=== PATIENT | male | born 1960 | race Caucasian/White ===

== ENCOUNTER 2018-10-23 10:27 | Inpatient (IN) ==
[2018-10-23] MEDS ORDERED: ASPIRIN PO ONE (10:44)
[2018-10-23] MEDS ORDERED: NS 1,000 ML IV ONE ×3 (10:53→15:00)
[2018-10-23] MEDS ORDERED: ZOFRAN IV ONE (10:53)
[2018-10-23] MEDS ORDERED: PEPCID IV ONE (10:53)
[2018-10-23] MEDS ORDERED: MORPHINE IV ONE ×3 (10:53→14:05)
[2018-10-23] MEDS ORDERED: SODIUM CHLORIDE 0.9% INJ ONE (10:54)
[2018-10-23 11:06] LABS: BASO# 0.02 X1000 (0.0-0.2); BASO% 0.2 % (0.0-0.8); EOS# 0.09 X1000 (0.0-0.7); EOS% 0.8 % (0.0-10.0); HEMATOCRIT 50.5 % (42.0-52.0); HEMOGLOBIN 16.9 g/dL (14.0-18.0); IMM GRAN# 0.01 X1000 (0.0-0.04); IMM GRAN% 0.1 % (0.0-0.5); LYMPH# 1.73 X1000 (1.2-3.4); LYMPH% 14.5 % (20.5-51.1); MCH 30.8 PG (27-31); MCHC 33.5 g/dL (33-37); MCV 92.2 FL (81-99); MONO# 0.65 X1000 (0.11-0.59); MONO% 5.4 % (1.7-9.3); NEUT# 9.47 X1000 (1.4-6.5); PLT 335 X1000 (130-400); RBC 5.48 XMIL (4.7-6.1); RDW 13.1 % (11.5-14.5); WBC 11.97 X1000 (4.8-10.8)
--- NOTE | 2018-10-23 11:10 | Diag Imaging Result Doc PS360 ---
EXAM: CHEST-PORTABLE HISTORY: epigastric pain sob TECHNIQUE: Single view of the chest was performed portably. COMPARISON: 03/28/2018 FINDINGS: The cardiomediastinal silhouette is within normal limits. The pulmonary vasculature is not congested. There are reduced lung volumes with crowding of basilar bronchovascular structures. No infiltrate, effusion, or pneumothorax is appreciated. IMPRESSION: Reduced lung volumes with crowding of basilar bronchovascular structures. Electronically signed by Marisol Gonzalez 10/23/2018 11:07 AM
[2018-10-23] MEDS ORDERED: REGLAN IV ONE (12:04)
[2018-10-23] MEDS ORDERED: BENADRYL IV ONE (12:04)
[2018-10-23 12:57] LABS: INR 0.89; PROTIME 12.5 Seconds (11.0-16.0)
[2018-10-23 13:07] LABS: AGAP 11; ALKALINE PHOSPHATASE 70 U/L (32-122); BUN 12 mg/dL (8-22); CALCIUM 9.4 mg/dL (8.8-10.2); CHLORIDE 104 mmol/L (98-107); COSMO 280; CREATININE 1.1 mg/dL (0.7-1.2); ESTIMATED GFR > 60; GLUCOSE 144 mg/dL (70-104); GOT 12 U/L (10-34); GPT 16 U/L (10-44); MAGNESIUM 1.8 mg/dL (1.5-2.7); POTASSIUM 4.8 mmol/L (3.5-5.1); SODIUM 139 mmol/L (136-145); TCO2 24 mmol/L (25-35); TOTAL PROTEIN 6.2 g/dL (6.3-8.3)
--- NOTE | 2018-10-23 13:43 | EKG Report ---
Test Performed on : 10/23/2018 10:46:22 AM Test Reason : sob epigastric pain Blood Pressure : / mmHG Vent. Rate : 068 BPM Atrial Rate : 068 BPM P-R Int : 168 ms QRS Dur : 098 ms QT Int : 400 ms P-R-T Axes : 039 051 054 degrees QTc Int : 425 ms Normal sinus rhythm. Normal ECG No previous ECGs available Unconfirmed Result
[2018-10-23] MEDS ORDERED: ZOSYN 4.5 GM in NS 100 ML IV ONE (14:05)
--- NOTE | 2018-10-23 14:07 | Diag Imaging Result Doc PS360 ---
EXAM: CT ABD/PELVIS W/IV CONT ONLY INDICATION: SBO TECHNIQUE: This exam was performed using automated exposure control, adjustment of mA or kV according to patient size, and/or use of iterative reconstruction technique. COMPARISON: 03/17/2018 FINDINGS: There are infiltrates at both lung bases suggesting possible aspiration. There may also be a component of atelectasis. The liver, spleen, pancreas, and adrenal glands are essentially unremarkable. There is a stable simple appearing cyst associated with the right kidney. The kidneys are unremarkable, otherwise. The urinary bladder is unremarkable. There is a small left inguinal hernia that contains only fat, stable. There is a moderate amount of extraluminal free gas seen throughout the abdomen. There is mild inflammatory stranding that appears to emanate from the proximal duodenum. I am suspicious that this free air is due to a perforated proximal duodenal ulcer. No discrete abscess is identified. A small amount of the gas is tracking along the esophagus into the lower thorax on the right. There is a small umbilical hernia that contains mesenteric fat as well as free air. IMPRESSION: Moderate amount of extraluminal free gas with mild inflammatory stranding that appears to emanate from the region of the duodenum. This is suspicious for a perforated proximal duodenal ulcer. The findings were discussed with Luiz Staton MD at 10/23/2018 2:05 PM and was acknowledged. Electronically signed by Thomas Mooney 10/23/2018 2:05 PM
[2018-10-23] MEDS ORDERED: FLAGYL 500 MG/NS 500 MG/100 ML IVPB IV ONE (14:09)
--- NOTE | 2018-10-23 14:54 | PROVIDER DOCUMENTATION ---
This chart was entered by Claudia Meeks Scribe, acting as scribe for Luiz Staton MD. HPI-Abdominal Pain/GI Problem - General Chief Complaint: Shortness of Breath Stated Complaint: STOMACH / CHEST PAIN Time Seen by Provider: 10/23/18 10:48 Source: patient Allergies/Adverse Reactions: Patient Allergies Allergy/AdvReac Type Severity Reaction Status Date / Time No Known Allergies Allergy Verified 03/17/18 08:24 Home Medications: Home Medication List Medication Instructions Recorded Confirmed Last Taken Type Acetaminophen with Codeine 1 ea PO Q6H PRN PRN #20 tab 03/19/18 03/27/18 Unknown Rx [Tylenol with Codeine #3 Tablet] Promethazine [Phenergan] 1 tab PO Q6H PRN PRN #18 tab 03/19/18 03/27/18 Unknown Rx Esomeprazole [Nexium] 40 mg PO DAILY 30 Days #30 cap 03/31/18 Unknown Rx - History of Present Illness-ABD Nature of Presenting Problems: 58 yom presents with sudden onset of epigastric pain with sob, nausea and and diaphoresis x 1 hour vessel captain. Denies f,c,v,d. Reports abd sx in March to fix a perforated bowel. Last BM last night. Abdominal Pain Onset Location: reports: epigastric Pain Radiation: reports: LUQ Quality of Pain: reports: aching Severity in ED: reports: moderate Onset/Duration: reports: 1 hour ago Timing: reports: still present Activities at Onset: reports: none Exposure to sick contacts?: No Review of Systems - Adult - REVIEW OF SYSTEMS - ADULT Constitutional: denies: chills, fever, fatique Eyes: reports: no symptoms reported Ears, Nose, Mouth & Throat: reports: no symptoms reported Cardiovascular: denies: chest pain, irregular heart rate, syncope Respiratory: reports: shortness of breath. denies: cough, wheezing Gastrointestinal: reports: abdominal pain, nausea. denies: hematemesis, constipation, diarrhea, difficulty swallowing, frequent heartburn, poor appetite , vomiting Genitourinary: denies: dysuria, discharge, frequency, flank pain, frequent UTI's , hematuria, hesitency, incontinence Musculoskeletal: reports: no symptoms reported Integumentary: reports: no symptoms reported Neurological: denies: ataxia, dizziness/vertigo, headache/migraines, loss of balance, numbness, paresthesia, syncope, tremors Psychiatric: reports: no symptoms reported Endocrine: reports: no symptoms reported Hematologic/Lymphatic: reports: no symptoms reported Allergic/Immunologic: reports: no symptoms reported All Other Systems: Reviewed and Negative Past History - Adult - PAST MEDICAL HISTORY-ADULT Review of Records: reports: Nursing Assessment Review, Medications Reviewed Major Childhood Illnesses: reports: denies history Cardiovascular: reports: HTN Respiratory: reports: denies history Gastrointestinal: reports: denies history Obstetrical/Gynecological: reports: denies history Genitourinary: reports: denies history Musculoskeletal: reports: denies history Neurological: reports: denies history Endocrine/Immune: reports: denies history Other Conditions: reports: denies history - PRIOR SURGERIES/PROCEDURES Surgical/Procedure History: reports: appendectomy, hernia repair - IMMUNIZATION STATUS Childhood Immunizations: See Nurse Assessment Flu Vaccine: See Nurse Assessment - FAMILY HISTORY Family History: reviewed, not pertinent - SOCIAL HISTORY Smoking: cigarettes, less than 1 pack/day Provider spent 3-5 mins advising pt. on dangers of tobacco.: Discussed manners to quit use, and f/u contacts for add'l counseling. Substance Use: alcohol Physical Exam-General - PHYSICAL EXAM-ADULT Initial Vital Signs Reviewed: Yes - CONSTITUTIONAL General Appearance: alert, moderate distress - EYES Eyes: PERRL/EOMI, pink conjunctivae - HEAD, EARS, NOSE, MOUTH & THROAT HENMT: moist mucous membranes - NECK Neck: non-tender, full range of motion, supple, normal inspection - RESPIRATORY Respiratory: chest non-tender, lungs clear, normal breath sounds, no pleuratic chest pain, no respiratory distress, no accessory muscle use - CARDIOVASCULAR Cardiovascular: normal peripheral pulses, regular rate, rhythm, no edema, no gallop, no JVD, no murmur - GASTROINTESTINAL (ABDOMEN) Abdominal Exam: soft, no organomegaly, no pulsatile mass, guarding, rebound, tenderness (luq and epigastric moderate ttp), other (healed abd scar midline) - MUSCULOSKELETAL Back Exam: normal inspection Extremity: normal range of motion, non-tender - SKIN Integumentary: normal color, normal turgor, warm/dry - NEUROLOGIC Neurologic: grossly normal - PSYCHIATRIC Psych/Mental Status: normal mood/affect, normal thought content, normal thought process, oriented x 3 Progress - PLAN OF CARE/RESULTS Progress/Plan/Lab Results: Vital Signs - 8 hr 10/23/18 10:35 Temperature 98 F Pulse Rate 67 Respiratory Rate 20 Blood Pressure 149/78 O2 Sat by Pulse Oximetry 96 Orders Category Date Time Status Cardiac Monitoring DIRECTED Care 10/23/18 10:42 Active Nursing- Obtain EKG once Care 10/23/18 10:42 Active Oxygen Therapy- ED Nursing DIRECTED Care 10/23/18 10:45 Active CHEST-PORTABLE [RAD] Stat Exams 10/23/18 10:42 Ordered CBC WITH DIFF [HEME] Stat Lab 10/23/18 10:42 Ordered CK PROFILE [SP CHEM] Stat Lab 10/23/18 10:42 Ordered COMPREHENSIVE METABOLIC PANEL [CHEM] Stat Lab 10/23/18 10:50 Ordered D-DIMER [COAG] Stat Lab 10/23/18 10:44 Ordered MAGNESIUM [CHEM] Stat Lab 10/23/18 10:50 Ordered PRO B-NATRIURETIC PEPTIDE Stat Lab 10/23/18 10:50 Ordered PROTIME WITH INR [COAG] Stat Lab 10/23/18 10:50 Ordered TROPONIN T Stat Lab 10/23/18 10:42 Ordered Aspirin Med 10/23/18 10:44 Discontinued 325 mg PO NOW ONE EKG [EKG] Stat Ther 10/23/18 10:[address] Geller Surgeon paiged at 1407 Result Diagrams: 10/23/18 10:55 10/23/18 10:55 - REASSESSMENT Reassessment #1 Time Reassessed: 14:10 Status: improving (Getting some relief with IV Morphine 4mg x 3, IV anti-emetics , also given IV zosyn/flagyl.) - EKG 1 Time of EKG reading by physician:: 10:46 EKG Read and Signed by:: Luiz Staton EKG Interpretation (*Must complete 3 of following elements*): Normal Rate: 68 Rhythm: nsr Burden: normal QRS: normal ST Wave: normal - XRAY 1 XRAY Study: Chest Impression: Normal, See EMR Report - CT/MRI 1 CT Study: Abdomen Impression: Abnormal (perforated bowel- Dr. Mooney), Discussed w/Radiology (Dr. Mooney), See EMR Report (EXAM: CT ABD/PELVIS W/IV CONT ONLY INDICATION: SBO TECHNIQUE: This exam was performed using automated exposure control, adjustment of mA or kV according to patient size, and/or use of iterative reconstruction technique. COMPARISON: 03/17/2018 FINDINGS: There are infiltrates at both lung bases suggesting possible aspiration. There may also be a component of atelectasis. The liver, spleen, pancreas, and adrenal glands are essentially unremarkable. There is a stable simple appearing cyst associated with the right kidney. The kidneys are unremarkable, otherwise. The urinary bladder is unremarkable. There is a small left inguinal hernia that contains only fat, stable. There is a moderate amount of extraluminal free gas seen throughout the abdomen. There is mild inflammatory stranding that appears to emanate from the proximal duodenum. I am suspicious that this free air is due to a perforated proximal duodenal ulcer. No discrete abscess is identified. A small amount of the gas is tracking along the esophagus into the lower thorax on the right. There is a small umbilical hernia that contains mesenteric fat as well as free air. IMPRESSION: Moderate amount of extraluminal free gas with mild inflammatory stranding that appears to emanate from the region of the duodenum. This is suspicious for a perforated proximal duodenal ulcer. The findings were discussed with Luiz Staton MD at 10/23/2018 2:05 PM and was acknowledged. Electronically signed by Thomas Mooney 10/23/2018 2:05 PM) - CONSULTS/PCP/HOSPITALIST Notification #1 *Consult/PCP/Hospitalist*: Yimi shanksjesus at 1400 Time Discussed: 14:54 Reason/Comments: accepts in transfer to [facility] Consult Disposition: Admit Departure - Departure Date of Disposition Decision: 10/23/18 Time of Disposition Decision: 14:05 DIAGNOSIS: Perforated abdominal viscus Disposition: ADMITTED INPATIENT 09 Certified Medical Emergency: Emergent Condition: Stable Referrals and Follow-Ups: Dar Floyd MD [Primary Care Provider] - - Critical Care Note This patient required my direct & personal management of CC.: No Attestation - Physician/ SYLVESTER Attestation Patient care was provided by Advanced Practice Provider:: No The physician spent face to face time with patient:: Yes Advanced Practice Provider documentation review:: Supervising physician onsite and consulted in the evaluation and care of this patient. The physician did have a face to face encounter with the patient. This chart was documented by the indicated scribe, (Claudia Meeks Scribe) and accurately reflects the services I performed and decisions made by , Luiz Staton MD, as attested by the provider's signature.
[2018-10-23] MEDS ORDERED: ZOFRAN IV PRN ×2 (15:00→20:43)
[2018-10-23] MEDS ORDERED: MORPHINE IV PRN (15:00)
[2018-10-23] MEDS ORDERED: DIPRIVAN 1% ONE (17:10)
[2018-10-23] MEDS ORDERED: XYLOCAINE-MPF 2% ONE (17:12)
[2018-10-23] MEDS ORDERED: QUELICIN (DOSE) ONE (17:12)
[2018-10-23] MEDS ORDERED: DECADRON ONE (17:13)
[2018-10-23] MEDS ORDERED: ZOFRAN ONE (17:13)
[2018-10-23] MEDS ORDERED: NORCURON ONE (17:30)
[2018-10-23] MEDS ORDERED: OFIRMEV 1000 MG/ISOTONIC SOLN 1,000 MG/100 ML BOTTLE ONE (17:41)
[2018-10-23] MEDS ORDERED: EPHEDRINE ONE (17:42)
--- NOTE | 2018-10-23 17:44 | HISTORY AND PHYSICAL ---
DATE: 10/23/2018 HISTORY OF PRESENT ILLNESS: This is a 58-year-old gentleman known to me. 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 He did well after that and overall has done well over the last 6 months or so. He developed acute onset epigastric chest pain that lasted 24 hours, prompting his admission to the emergency department. CT scan was a plan obtained that showed free air concerning for a perforated viscus. He has been hemodynamically stable. Denies any nausea or vomiting, says his bowel function has been normal. He has been attempting to lose weight. He has had been on a modified diet. PAST MEDICAL HISTORY: Hypertension. SURGICAL HISTORY: 1. Repair of a cholecystoduodenal fistula. 2. Appendectomy. 3. Cholecystectomy. 4. Incisional hernia repair x2. SOCIAL HISTORY: No tobacco, alcohol, or drugs. Works locally. FAMILY HISTORY: Reviewed negative for cancer. REVIEW OF SYSTEMS: Ten point negative. OBJECTIVE: Vital Signs: Temperature 98.3 degrees, pulse 76, blood pressure 136/76. Oxygen 97%. General: He is alert, obviously uncomfortable. HEENT: No scleral icterus. No cervical mass. Cardiovascular: Normal rate. Regular rhythm. Pulmonary: No increased work of breathing. Abdomen: Soft. There is peritonitis throughout worse in the upper quadrants. There is a reducible incisional hernia. Integument: Warm and dry. Psychiatric: Appropriate affect. Neurologic: No gross deficits. Lymphatic: No cervical adenopathy. Peripheral vascular: No lower extremity edema LABS: White count is 11, hematocrit 50, platelets 335,000. Creatinine is 1.1, glucose 144. ALT and troponins are normal. Albumin is normal. I have reviewed a CT scan that shows free intra-abdominal air and duodenal inflammation. ASSESSMENT AND PLAN: A 58-year-old gentleman with apparent perforation of his previous duodenal repair. We discussed risks of bleeding, infection, possibility of a distal gastrectomy, possibility of temporary feeding tube. He understands all this and consents to emergent exploratory laparotomy and we will go to the operating room now. He has received antibiotics. cc: Tito Geller MD
[2018-10-23] MEDS ORDERED: ROBINUL ONE ×2 (18:07)
[2018-10-23] MEDS ORDERED: NEOSTIGMINE ONE (18:07)
[2018-10-23 18:15] LABS: URINE SOURCE CATH
[2018-10-23 18:25] LABS: BILIRUBIN URINE NEGATIVE (NEGATIVE); BLOOD URINE TRACE (NEGATIVE); COLOR YELLOW; GLUCOSE URINE NEGATIVE (NEGATIVE); KETONE URINE NEGATIVE (NEGATIVE); LEUKOCYTES URINE NEGATIVE (NEGATIVE); NITRITE URINE NEGATIVE (NEGATIVE); PROTEIN URINE TRACE mg/dL (NEGATIVE); SP GRAVITY URINE > 1.050; TURBIDITY URINE CLEAR (CLEAR); UR EPITHELIAL CELLS <10 /HPF (<10); URINE BACTERIA NEGATIVE /HPF; URINE RBC <10 /HPF (<10); URINE WBC <10 /HPF (<10); UROBILINOGEN URINE NORMAL (NORMAL)
[2018-10-23] MEDS ORDERED: ZEMURON ONE (18:26)
[2018-10-23] MEDS ORDERED: DILAUDID ONE (18:26)
[2018-10-23] MEDS ORDERED: BRIDION ONE (18:51)
[2018-10-23] MEDS ORDERED: VENTOLIN HFA ONE (19:19)
[2018-10-23] MEDS ORDERED: NS 1,000 ML ONE (19:25)
[2018-10-23] MEDS: DILAUDID ONE ×3 (19:32→22:59)
[2018-10-23] MEDS ORDERED: LR 1,000 ML IV ONE (20:43)
[2018-10-23] MEDS: OFIRMEV 1000 MG/ISOTONIC SOLN 1,000 MG/100 ML BOTTLE IV SCH ×2 (22:23)
[2018-10-23] MEDS: PERIDEX MT SCH (22:24)
[2018-10-23] MEDS: PROTONIX IV SCH (22:24)
[2018-10-23] MEDS: DILAUDID IV PRN (22:29)
[2018-10-24] MEDS: OFIRMEV 1000 MG/ISOTONIC SOLN 1,000 MG/100 ML BOTTLE IV SCH ×4 (02:10→15:30)
--- NOTE | 2018-10-24 02:10 | OPERATIVE NOTE ---
PROCEDURE DATE: 10/23/2018 PREOPERATIVE DIAGNOSIS: Free intra-abdominal air with peritonitis. POSTOPERATIVE DIAGNOSIS: Perforated duodenal ulcer. PROCEDURES PERFORMED.: 1. Exploratory laparotomy. 2. Rafael patch repair of duodenal ulcer. 3. Biopsy of duodenal ulcer. ESTIMATED BLOOD LOSS: 700 mL. ANESTHESIA: General. INDICATION FOR PROCEDURE: This is a 58-year-old gentleman who has a history of a repair of a cholecystoduodenal fistula noted at the time of elective cholecystectomy. This was repaired with Rafael patch. He did well for the last 6 months, but developed worsening abdominal pain today and a CT scan showed free air. OPERATIVE FINDINGS: There is an approximately 3-mm duodenal ulcer at the first portion just distal to the pylorus of the duodenum, with purulent bile stained ascites within the abdomen. There was no evidence of distal obstruction. The colon was normal. There was no peritoneal disease. The liver was normal. The stomach was normal. There is some adjacent inflammation of the hepatic flexure of the colon. DESCRIPTION OF PROCEDURE: The risks, benefits and alternatives were discussed with the patient and he consented to the procedure. He was seen preoperatively and the surgical site was confirmed. He was taken to the operating room and placed in the supine position. General anesthesia was induced without complication. All bony prominences were padded. A nasogastric tube and a Reeves catheter were placed and his abdomen was prepped after hair was removed with chlorhexidine and draped widely. After a time-out we made an upper midline incision from the xiphoid down to the level of the umbilicus and entered the abdomen in an open controlled fashion dividing the midline fascia. There was a large amount of purulent ascites noted, we suctioned this until clear and took down some omental adhesions, but overall there was relatively few intra- abdominal adhesions. We placed an upper hand retractor to gain exposure and retract and liver cephalad. We encountered a large amount of bile-stained purulent ascites in the right upper quadrant. We ran the small bowel, and there was distally what appeared to be a noninflamed Meckel's diverticulum. The appendix was surgically absent, the colon was normal and there was no pelvic findings. The liver and stomach were normal. After gently mobilized the duodenum out of the right upper quadrant we identified the perforation. There was some omentum up to the duodenum from his previous repair and this seems separate from that area. We did palpate the lesser sac through the gastrocolic ligament, there was no staining stained fluid in this area. We debrided the edges, although this was a pretty clean ulcer and sent an excision of this for permanent pathology. There was no tension whatsoever given that this was felt to be separate issue, and that he did have some modifiable risk factors. We elected to perform a patch repair of this area. We reapproximated the edges of the ulcer transversely with interrupted 3-0 Vicryl sutures. There was good closure here, but we mobilized a tongue of omentum that was well vascularized, and using a series of interrupted 3-0 Vicryl sutures some of which were horizontal mattress we buttressed the repair with an omental flap. We also tacked down the falciform ligament to this area as a layer of second repair. We copiously irrigated the abdomen with greater than 2 L of warm saline, we placed a Murray drain in the gallbladder subhepatic fossa adjacent to our repair, and brought it out through a stab incision in the right side of the abdomen. There was a hernia noted in the lower midline from his previous operation, we mobilized this back to healthy fascia and closed the fascia along the midline with a #1 running looped PDS suture. We changed our gloves prior to this. Nasogastric tube was confirmed to be in good position prior to abdominal closure. We irrigated the superficial wound and closed the incision with barry, 4 x 4, Medipore tape dressing was applied. The drain was placed to suction with serosanguineous. He was awakened and transferred to recovery, I spoke with family. cc: Tito Geller MD
[2018-10-24] MEDS: DILAUDID IV PRN ×5 (02:13→22:19)
[2018-10-24] MEDS: ZOSYN 3.375 GM in NS 50 ML IV SCH ×3 (06:56→17:34)
[2018-10-24] MEDS: LR 1,000 ML IV SCH ×2 (06:57→17:40)
[2018-10-24 07:13] LABS: HEMATOCRIT 43.5 % (42.0-52.0); HEMOGLOBIN 14.1 g/dL (14.0-18.0); MCH 30.5 PG (27-31); MCHC 32.4 g/dL (33-37); MCV 94.2 FL (81-99); RBC 4.62 XMIL (4.7-6.1); RDW 13.4 % (11.5-14.5); WBC 15.22 X1000 (4.8-10.8)
--- NOTE | 2018-10-24 07:16 | GENERAL SURGERY PROGRESS NOTE ---
DATE: 10/24/2018 SUBJECTIVE: He is feeling okay. He has required a couple doses of pain medicine overnight. No nausea. NG tube is in place. Reeves has been removed. Hemodynamically, he has been stable with no tachycardia. No fevers. OBJECTIVE: Blood pressure 137/65. CHANDANA draining serosanguineous. Dressing is intact. Abdomen is mildly distended but soft. Labs are pending. ASSESSMENT AND PLAN: A 58-year-old gentleman status post Rafael patch repair of perforated duodenal ulcer. We have him on proton pump inhibitor b.i.d., Lovenox, Ofirmev, and p.r.n. Dilaudid. I have encouraged to be out of bed and ambulating today. We will continue his hydration with lactated Ringer's. We will also continue antibiotics for intra-abdominal contamination. cc: Tito Geller MD
[2018-10-24 07:46] LABS: AGAP 13; BUN 14 mg/dL (8-22); CALCIUM 8.5 mg/dL (8.8-10.2); CHLORIDE 104 mmol/L (98-107); COSMO 280; ESTIMATED GFR > 60; GLUCOSE 127 mg/dL (70-104); SODIUM 139 mmol/L (136-145); TCO2 22 mmol/L (25-35)
[2018-10-24] MEDS: LOVENOX SUBQ SCH (10:09)
[2018-10-24] MEDS: PERIDEX MT SCH ×2 (10:09→22:20)
[2018-10-24] MEDS: PROTONIX IV SCH ×2 (10:09→22:19)
[2018-10-24] MEDS: SODIUM CHLORIDE 0.9% INJ SCH ×2 (10:10→22:19)
[2018-10-25] MEDS: ZOSYN 3.375 GM in NS 50 ML IV SCH ×4 (00:45→17:53)
[2018-10-25] MEDS: DILAUDID IV PRN ×7 (02:36→23:00)
[2018-10-25] MEDS: LR 1,000 ML IV SCH ×2 (05:42→17:52)
[2018-10-25 09:03] LABS: AGAP 11; BUN 13 mg/dL (8-22); CALCIUM 9.1 mg/dL (8.8-10.2); CHLORIDE 102 mmol/L (98-107); COSMO 272; CREATININE 1.1 mg/dL (0.7-1.2); ESTIMATED GFR > 60; GLUCOSE 98 mg/dL (70-104); MAGNESIUM 1.8 mg/dL (1.5-2.7); POTASSIUM 3.9 mmol/L (3.5-5.1); SODIUM 136 mmol/L (136-145); TCO2 23 mmol/L (25-35)
[2018-10-25] MEDS: LOVENOX SUBQ SCH (09:35)
[2018-10-25] MEDS: PERIDEX MT SCH ×2 (09:36→23:00)
[2018-10-25] MEDS: SODIUM CHLORIDE 0.9% INJ SCH ×2 (09:36→23:00)
[2018-10-25] MEDS: PROTONIX IV SCH ×2 (09:36→23:00)
--- NOTE | 2018-10-25 09:39 | Diag Imaging Result Doc PS360 ---
GI SERIES WITH BA SWALLOW - 10/25/2018 INDICATION: duodenal ulcer repair TECHNIQUE: Upper GI with Gastrografin. Total fluoroscopy time was three minutes 46 seconds. 41 images were obtained. COMPARISON: CT from 10/23/2018 FINDINGS: There is a nasogastric tube with the tip in the proximal duodenum. There is a good swallowing reflex. The stomach, duodenum, and proximal small bowel are normal with normal mucosa. There is fairly good peristalsis. No evidence of leak. IMPRESSION: No complication. Electronically signed by Aamir Arthur 10/25/2018 9:37 AM
[2018-10-25 09:57] LABS: BASO# 0.01 X1000 (0.0-0.2); BASO% 0.1 % (0.0-0.8); EOS# 0.02 X1000 (0.0-0.7); EOS% 0.2 % (0.0-10.0); HEMOGLOBIN 13.4 g/dL (14.0-18.0); IMM GRAN# 0.02 X1000 (0.0-0.04); IMM GRAN% 0.2 % (0.0-0.5); LYMPH# 1.31 X1000 (1.2-3.4); LYMPH% 11.3 % (20.5-51.1); MCH 30.2 PG (27-31); MCHC 31.9 g/dL (33-37); MCV 94.8 FL (81-99); MONO# 1.08 X1000 (0.11-0.59); MONO% 9.3 % (1.7-9.3); MPV 10.1 FL (7.4-10.4); NEUT# 9.13 X1000 (1.4-6.5); NEUT% 78.9 % (42.2-75.2); PLT 254 X1000 (130-400); RBC 4.43 XMIL (4.7-6.1); RDW 13.3 % (11.5-14.5); WBC 11.57 X1000 (4.8-10.8)
--- NOTE | 2018-10-25 21:33 | GENERAL SURGERY PROGRESS NOTE ---
DATE: 10/25/2018 SUBJECTIVE: Feeling okay. He is passing some gas. No fevers. No tachycardia. OBJECTIVE: Vital signs: Blood pressure 129/69. Upper GI showed no leak this morning, and his CHANDANA drain remained was serosanguineous. Abdomen is mildly distended but soft. Output: Urine output has been adequate. LABORATORY DATA: I reviewed his labs. White count is 11, hematocrit 42. Creatinine is 1.1, potassium is 3.9. ASSESSMENT AND PLAN: This is a 58-year-old gentleman status post Rafael patch repair of duodenal ulcer. We will remove his nasogastric tube today, give him clear liquids tomorrow. We will keep his drain. Encourage him to be out of bed. cc: Tito Geller MD MTDD
[2018-10-26] MEDS: ZOSYN 3.375 GM in NS 50 ML IV SCH ×5 (00:50→21:37)
[2018-10-26] MEDS: DILAUDID IV PRN ×5 (03:02→22:43)
[2018-10-26] MEDS: LR 1,000 ML IV SCH ×3 (03:47→22:43)
[2018-10-26] MEDS: PERIDEX MT SCH ×2 (09:49→21:37)
[2018-10-26] MEDS: SODIUM CHLORIDE 0.9% INJ SCH ×2 (09:49→21:38)
[2018-10-26] MEDS: LOVENOX SUBQ SCH (09:49)
[2018-10-26] MEDS: PROTONIX IV SCH ×2 (09:49→21:38)
--- NOTE | 2018-10-26 18:37 | GENERAL SURGERY PROGRESS NOTE ---
DATE: 10/26/2018 SUBJECTIVE: He is doing well. He is passing gas. NG tube output remains serosanguineous. No nausea. He is tolerating NG tube removal. No fevers. No tachycardia. OBJECTIVE: Vital signs: Blood pressure 130s to 160s systolic, oxygen saturation 99% on room air. General: He is alert. Abdomen: Soft. Dressing intact. CHANDANA drain serosanguineous. LABORATORY: White count is down to 11, hematocrit is 42. Creatinine is 1.1. ASSESSMENT AND PLAN: This is a 58-year-old gentleman status post Rafael patch repair of duodenal ulcer. He is doing well. He has been out of bed. We will plan on advancing his diet to soft tomorrow. cc: Tito Geller MD
[2018-10-27] MEDS: ZOSYN 3.375 GM in NS 50 ML IV SCH ×4 (00:20→17:47)
[2018-10-27] MEDS: DILAUDID IV PRN ×5 (03:11→20:38)
[2018-10-27] MEDS: LR 1,000 ML IV SCH (06:18)
[2018-10-27] MEDS: LOVENOX SUBQ SCH (09:55)
[2018-10-27] MEDS: PROTONIX IV SCH ×2 (09:55→20:32)
[2018-10-27] MEDS: PERIDEX MT SCH ×2 (09:55→20:32)
[2018-10-27] MEDS: SODIUM CHLORIDE 0.9% INJ SCH (09:55)
--- NOTE | 2018-10-27 14:17 | GENERAL SURGERY PROGRESS NOTE ---
DATE: 10/27/2018 SUBJECTIVE: He is doing well. Bowels are functioning. He is tolerating clear liquids. No fevers. No tachycardia. OBJECTIVE: Vital Signs: Blood pressure 129/74. General: He is alert. Abdomen: Abdomen is soft. Incision intact. CHANDANA drain serosanguineous. LABORATORY DATA: White count 11, hematocrit 42. Those labs are from yesterday. ASSESSMENT AND PLAN: A 58-year-old gentleman status post Rafael patch repair of duodenal ulcer. We will advance the diet to soft today and re-evaluate this afternoon; he may be able to go home. cc: Tito Geller MD
[2018-10-28] MEDS: DILAUDID IV PRN (00:16)
[2018-10-28] MEDS: ZOSYN 3.375 GM in NS 50 ML IV SCH ×2 (01:32→05:45)
[2018-10-28] MEDS: LOVENOX SUBQ SCH (08:43)
[2018-10-28] MEDS: PROTONIX IV SCH (08:43)
[2018-10-28] MEDS: PERIDEX MT SCH (08:43)
[2018-10-28 09:57] VITALS: BP 163/87
--- NOTE | 2018-10-28 13:59 | GENERAL SURGERY PROGRESS NOTE ---
DATE: 10/28/2018 SUBJECTIVE: He is afebrile, doing well. Drain has just some serous fluid. He is tolerating p.o. intake. His bowels had moved. PLAN: Discharge and remove his drain today. He will return to see Dr. Geller next week for staple removal. We will order him something for ulcer treatment and something for pain. cc: MD Tito Hogan MD
--- NOTE | 2018-11-19 18:12 | DISCHARGE SUMMARY ---
ADMISSION DATE: 10/23/2018 DISCHARGE DATE: 10/28/2018 ADMITTING DIAGNOSIS: Perforated duodenal ulcer. POSTOP: Perforated duodenal ulcer. PROCEDURE PERFORMED: Rafael patch repair of perforated duodenal ulcer. HPI: A 58-year-old gentleman who has a history of cholecystoduodenal fistula who presents with free air. HOSPITAL COURSE: The patient was in the emergency department after which he was taken emergently to the operating room for above procedure. For details please see dictated operative note. Postoperatively he did well. He had an upper GI study on the that showed no leak and his nasogastric tube was removed. His diet was gradually advanced to soft. He is continued on PPI therapy and transition to oral at discharge. Incision remained intact. He had normal return of bowel function, was tolerating a soft diet and felt safe for discharge home. Followup appointment with me in 1 week. DISPOSITION: Home to self-care. DISCHARGE MEDICATIONS: Given a prescription for Protonix, [place], Colace and Zofran. DISCHARGE INSTRUCTIONS: Were given written and verbal format and he was also given strict instructions to avoid alcohol and tobacco and NSAIDs at all cost. cc: Tito Geller MD
== END 2018-10-28 11:06 | disposition home or self-care (01) | DRG 329 ==
LOC: P.ED 10:27 → 4N 20:37
PROVIDERS: ADMIT Surgery; ATTEND Surgery
CPT/HCPCS: 71010; 71045; 74177; 74246; 80048; 80053; 81001; 82550; 83735; 83880; 84484; 85025; 85027; 85610; 87070; 87075; 87205; 88305; 88312; 88313; 93005; 94760; 94761; 94799; 96361; 96365; 96368; 96375; 96376; 97162; 99285; A9270; C9113; J0131; J0330; J1100; J1170; J1200; J1650; J2270; J2405; J2543; J2765; J7030; J7120; Q9966; Q9967; S0028; S0030; S0164